=== PATIENT | female | born 1940 | race Caucasian/White ===

== ENCOUNTER → 2019-12-14 | Outpatient (CLI) | payer MEDICARE, BC ==
[~2019-12-14] MED LIST: GADOBENATE DIMEGLUMINE 1 ML IV ONE
[2019-12-14 15:21] LABS: CREATININE, SERUM 1.14 mg/dL (0.57-1.11)
--- NOTE | 2019-12-17 07:42 | Diagnostic Imaging Report ---
EXAMINATION: MRI of the IACs with and without contrast HISTORY: Trigeminal neuralgia, facial pain and spasms. COMPARISON: None available TECHNIQUE: Whole brain: axial FLAIR, DWI and postcontrast axial and coronal T1 fat sat. Thin sections of the IACs: axial T2 high resolution, T1-IR pre-contrast, T1 post-contrast; coronal T1 post-contrast. Intravenous Contrast: 17 mL of MultiHance. FINDINGS: Cistern cranial nerve V: The right superior cerebral artery is abutting the lateral aspect of the cisternal cranial nerve V . Otherwise no abnormalities, particularly no mass, abnormal signal intensity or enhancement in the cisternal segments of the there CN 5. The bilateral Meckel's caves and cavernous sinuses are unremarkable. IACs: Normal. No mass or abnormal enhancement. Labyrinths: Normal. No abnormal enhancement. Cerebellopontine angle cisterns: Normal. No mass or abnormal enhancement. Brainstem: Normal. Temporal bones: Normal. Visualized brain parenchyma: Unremarkable Jugular fossa: No discrete mass, normal position Carotid canals: Unremarkable. No aberrant carotid arteries. Posterior fossa dural sinuses: No abnormalities. Brain parenchyma/extra-axial spaces: Focal cortical/subcortical T2 and FLAIR hyperintense lesion in the right superior frontal tiredness, no associated surrounding edema, significant local mass effect or enhancement. The lesion measures about 3.7 cm AP x 0.9 cm transverse diameter. Few scattered and moderate confluent periventricular and coronary radiata T2 hyperintense foci, most likely nonspecific chronic microvascular ischemic changes. Small approximately 7 mm left superior/anterior frontal convexity homogeneously enhancing extra-axial/dural based lesion that likely corresponds to a small meningioma, no associated mass effect or abnormal signal in the underlying parenchyma. IMPRESSION: 1. Right superior frontal lobe cortical lesion, differential diagnosis would include a low-grade glioma, comparison to prior studies if available is recommended. 2. Tiny left superior frontal extra-axial lesion, likely a meningioma without associated mass effect. 3. Moderate chronic microvascular ischemic changes. 4. The right superior cerebellar artery is minimally abutting the right cranial nerve V as above, otherwise no abnormalities Signed by: Dr. Suellen Paulson M.D. on 12/17/2019 7:39 AM
--- NOTE | 2019-12-17 11:00 | Diagnostic Imaging Report ---
Exam: Bone mineral density study. History: Osteopenia. Comparison: None Discussion: Evaluation of the left hip and lumbar spine was performed utilizing DEXA Hologic bone densitometer. The study is technically adequate. Left hip total bone mineral density: 0.771gm/cm2, T-score is -1.4, Z-score is 0.8. Left hip femoral neck bone mineral density: 0.666gm/cm2, T-score is -1.7, Z-score is 0.7. Lumbar spine total bone mineral density:1.004gm/cm2, T-score is-0.4, Z-score is 2.4. Impression: 1. Osteopenia of the left hip, fracture risk is increased 2. Normal bone mineral density of the lumbar spine, fracture risk is not increased. Least significant change (LSC) for bone mineral density as provided by refinery operator light ends recovery is 0.023 g/cm2 for lumbar spine and 0.027 g/cm2 for total hip. 10 -year fracture risk per WHO Fracture Risk Assessment Tool (FRAX) for: Major osteoporotic fracture is 14.0% Hip fracture is 3.5% The above fracture probability is calculated for an untreated patient. Fracture probably may be lower if the patient has received treatment. All treatment decisions require clinical judgment and consideration of individual patient factors, including patient preferences, comorbidities, previous drug use and risk factors not captured in the FRAX model (e.g. frailty, falls, vitamin D deficiency, increased bone turnover, interval significant decline in BMD). The patient's fracture risk is compared to an age-matched control. Medical evaluation for secondary causes of low bone bone mineral density may be appropriate. Correlate clinically for the necessity and timing of the next bone mineral density study. Signed by: Dr. Ildefonso Mcginnis M.D. on 12/17/2019 10:57 AM
== END ==
LOC: DX 14:02
PROVIDERS: ATTEND Emergency Medicine
DX: Z00.00 Encounter for general adult medical examination without abnormal findings (principal); G50.0 Trigeminal neuralgia; E11.40 Type 2 diabetes mellitus with diabetic neuropathy, unspecified; I10 Essential (primary) hypertension; E78.2 Mixed hyperlipidemia; R60.0 Localized edema; E66.9 Obesity, unspecified
CPT/HCPCS: 36415; 70553; 77080; 82565; 84520; A9577

== ENCOUNTER → 2020-05-01 | Outpatient (CLI) | payer MEDICARE, BC ==
[2020-05-01 14:20] LABS: CREATININE, SERUM 1.04 mg/dL (0.57-1.11)
== END ==
LOC: MRI 13:48
PROVIDERS: ATTEND Specialist
DX: D32.0 Benign neoplasm of cerebral meninges (principal)
CPT/HCPCS: 36415; 70553; 82565; 84520; A9577

== ENCOUNTER → 2021-02-13 | Outpatient (CLI) | payer MEDICARE, BC | LOC: MRI 10:38 | PROVIDERS: ATTEND Specialist | DX: D32.0 Benign neoplasm of cerebral meninges (principal) ==

== ENCOUNTER → 2021-04-23 | Outpatient (CLI) | payer MEDICARE, BC | LOC: CT 13:30 | PROVIDERS: ATTEND Emergency Medicine | DX: R31.9 Hematuria, unspecified (principal); M17.12 Unilateral primary osteoarthritis, left knee | CPT/HCPCS: 74176 ==

== ENCOUNTER → 2022-08-10 | Outpatient (CLI) | payer MEDICARE, BC ==
[~2022-08-10] MED LIST changes: -GADOBENATE DIMEGLUMINE 1 ML IV ONE; +IOPAMIDOL 370 MG/ML 100 ML INFUS..BTL INJ ONE
[2022-08-10 14:42] LABS: CREATININE, SERUM 0.85 mg/dL (0.57-1.11)
== END ==
LOC: CT 13:51
PROVIDERS: ATTEND Specialist
DX: D32.0 Benign neoplasm of cerebral meninges (principal)
CPT/HCPCS: 36415; 70470; 82565; 84520; Q9967

== ENCOUNTER → 2023-02-22 | Outpatient (REF) | payer MEDICARE, BC ==
[~2023-02-22] MED LIST changes: +GADOBENATE DIMEGLUMINE 1 ML IV ONE; -IOPAMIDOL 370 MG/ML 100 ML INFUS..BTL INJ ONE
== END ==
LOC: MRI 13:27
PROVIDERS: ATTEND Specialist
DX: D32.0 Benign neoplasm of cerebral meninges (principal)
CPT/HCPCS: 70551